=== PATIENT | male | born 1950 | race Two or more races ===

== ENCOUNTER 2017-11-10 07:15 | Inpatient (IN) | END 2017-11-11 14:36 | disposition home health service (06) | DRG 470 | DX: M17.12 Unilateral primary osteoarthritis, left knee (principal); K21.9 Gastro-esophageal reflux disease without esophagitis; M21.069 Valgus deformity, not elsewhere classified, unspecified knee ==

== ENCOUNTER 2017-11-15 13:33 | Emergency (ER) | payer MEDICARE, OTHER ==
[~2017-11-15] VITALS: Ht 172.7 cm; Wt 74.0 kg
[~2017-11-15 13:33] MED LIST: ECASA81 PO; HYDR-3580 PO; MAPA500T13 PO; PANT40TA3 PO
[2017-11-15 13:43] VITALS: BP 147/59; PULSE 100; RESP 20; TEMP 98; O2SAT 97
[2017-11-15 14:17] VITALS: BP 137/76; PULSE 86; RESP 18; O2SAT 97
[2017-11-15 14:24] LABS: AUTOMATED NEUTROPHIL # 5.4 TH/MM3 (1.8-7.7); BASOPHIL % 0.2 % (0.0-2.0); EOSINOPHIL # 0.1 TH/MM3 (0-0.4); EOSINOPHIL % 1.6 % (0.0-4.0); HEMATOCRIT 31.6 % (39.0-51.0); HEMOGLOBIN 10.4 GM/DL (13.0-17.0); LYMPH % 12.6 % (9.0-44.0); LYMPHOCYTE # 0.9 TH/MM3 (1.0-4.8); MEAN CELL VOLUME 85.8 FL (80.0-100.0); MEAN CORPUSCULAR HEMOGLOBIN 28.3 PG (27.0-34.0); MONO % 9.9 % (0.0-8.0); MONOCYTE # 0.7 TH/MM3 (0-0.9); NEUT % 75.7 % (16.0-70.0); PLATELET COUNT 240 TH/MM3 (150-450); RED BLOOD COUNT 3.68 MIL/MM3 (4.50-5.90); RED CELL DISTRIBUTION WIDTH 14.4 % (11.6-17.2); WHITE BLOOD COUNT 7.2 TH/MM3 (4.0-11.0)
--- NOTE | 2017-11-15 14:45 | RADRPT ---
EXAM DATE: 11/15/2017 2:35 PM EDT AGE/SEX: 67 years / Male INDICATIONS: Left posterior knee pain, swelling, drainage from sutures. Total knee replacement 5 day s ago. Denies injury CLINICAL DATA: This is the patient's sequela encounter. Patient reports that signs and symptoms have been present for 4 - 6 days and indicates a pain score of 3/10. MEDICAL/SURGICAL HISTORY: Arthritis. Total knee replacement, left. COMPARISON: Knee x-ray 11/10/2017. FINDINGS: There is a total knee prosthesis in good position. An enlarging joint effusion and worsening soft tis francisco swelling relative to the prior exam. No cortical destruction. No radiopaque foreign body. CONCLUSION: Worsening joint effusion and soft tissue swelling relative to the prior study. Electronically signed by: Nikhil Hebert MD 11/15/2017 2:44 PM EDT
[2017-11-15 15:03] LABS: BICARBONATE 25.9 MEQ/L (21.0-32.0); C-REACTIVE PROTEIN 17.3 MG/DL (0.00-0.30); CALCIUM 8.3 MG/DL (8.5-10.1); CREATININE 1.26 MG/DL (0.60-1.30); MAGNESIUM 2.3 MG/DL (1.5-2.5)
--- NOTE | 2017-11-15 15:35 | PD ---
HPI Chief Complaint: Wound/Suture/Staple Re-Check Time Seen by Provider: 13:54 Travel History International Travel<30 days: No Contact w/Intl Traveler<30days: No Traveled to known affect area: No History of Present Illness HPI 67-year-old male that presents to the ED for violation of swelling and rash to the left knee. Patient had a knee replacement on Thursday by Dr. Conklin. Patient has been doing well since discharge except that today they have noted the patient has blisters on his skin. Blisters appear to follow the pattern of the tape that was put on the need to keep the skin together. Mainly on the borders. None noted on the surgical scar itself. The patient is not painful or itchy. They noted some swelling and some bleeding from 1 of the surgical wounds but this has since stopped with dressing and packing. Patient denies any chest pain or shortness of breath. No fevers chills or sweats. Patient apparently contacted the wound nurse who told him to come here to get checked out. Patient denies any other medical issues. Has no allergies to medication. Per patient the pain is minimal. No other medical issues at this time. PFSH Past Medical History Anxiety: No Depression: No Cancer: No Cardiovascular Problems: No Diabetes: No Endocrine: No Gastrointestinal Disorders: Yes GERD: Yes Genitourinary: No Hepatitis: No Hiatal Hernia: No Hypertension: No Immune Disorder: No Implanted Vascular Access Dvce: Yes Medical other: No Musculoskeletal: Yes (arthritis) Neurologic: No Psychiatric: No Reproductive: No Respiratory: No Thyroid Disease: No Past Surgical History Abdominal Surgery: No AICD: No Cardiac Surgery: No Ear Surgery: No Endocrine Surgery: No Eye Surgery: No Genitourinary Surgery: No Gynecologic Surgery: No Joint Replacement: Yes (right hip, total knee) Neurologic Surgery: No Oral Surgery: No Pacemaker: No Thoracic Surgery: No Other Surgery: Yes Social History Alcohol Use: No Tobacco Use: No Substance Use: No Allergies-Medications (Allergen,Severity, Reaction): Coded Allergies: No Known Allergies (Verified Allergy, Mild, 10/22/03) Reported Meds & Prescriptions Reported Meds & Active Scripts Active Hydrocodone-Acetamin 7.5-325 (Hydrocodone/Acetaminophen) 7.5 Mg-325 Mg Tablet 1 Tab PO Q4H PRN Aspirin DR (Aspirin) 81 Mg Tabdr 81 Mg PO BID 30 Days Reported Pantoprazole (Pantoprazole Sodium) 40 Mg Tab 40 Mg PO DAILY PRN Mapap Extra Strength (Acetaminophen) 500 Mg Tab 500 Mg PO Q4-6H PRN Review of Systems Except as stated in HPI: all other systems reviewed are Neg Physical Exam Narrative GENERAL: SKIN: Warm and dry. HEAD: Atraumatic. Normocephalic. EYES: Pupils equal and round. No scleral icterus. No injection or drainage. ENT: No nasal bleeding or discharge. Mucous membranes pink and moist. Tongue is midline. No uvula deviation. NECK: Trachea midline. No JVD. CARDIOVASCULAR: Regular rate and rhythm. No murmurs, S3, S4. RESPIRATORY: No accessory muscle use. Clear to auscultation. Breath sounds equal bilaterally. GASTROINTESTINAL: Abdomen soft, non-tender, nondistended. Hepatic and splenic margins not palpable. MUSCULOSKELETAL: Extremities without clubbing, cyanosis, or edema. No obvious deformities. Full range of motion of the upper and lower extremities bilaterally with exception of the left knee which patient cannot completely flex. Some discomfort. Patient does have many postsurgical changes to his left leg compared to the right. Deafly some bruising noted patient the medial aspect. No pain in this area. Patient does have some swelling noted on the knee joint itself. Surgical scar itself appears to be intact. Patient does have some sutures as well as surgical tape on top of it and there appears to be blisters and red-like rash that appeared to be more heavy looking around the borders of this surgical tape. Knee itself is a little bit warm but not hot to touch. 2+ pulses bilaterally. Sensation is intact bilaterally. NEUROLOGICAL: Awake and alert. No obvious cranial nerve deficits. Motor grossly within normal limits. Five out of 5 muscle strength in the arms and legs. Normal speech. PSYCHIATRIC: Appropriate mood and affect; insight and judgment normal. Data Data Last Documented VS Vital Signs Date Time Temp Pulse Resp B/P (MAP) Pulse Ox O2 Delivery O2 Flow Rate FiO2 11/15/17 14:17 86 18 137/76 (96) 97 11/15/17 13:43 98.0 Orders Orders Complete Blood Count With Diff (11/15/17 14:02) Basic Metabolic Panel (Bmp) (11/15/17 14:02) C-Reactive Protein (Crp) (11/15/17 14:02) Westergren Sedimentation Rate (11/15/17 14:02) Magnesium (Mg) (11/15/17 14:02) Knee, Complete (4vws) (11/15/17 ) Ed Discharge Order (11/15/17 15:26) Labs Laboratory Tests Test 11/15/17 14:06 White Blood Count 7.2 TH/MM3 Red Blood Count 3.68 MIL/MM3 Hemoglobin 10.4 GM/DL Hematocrit 31.6 % Mean Corpuscular Volume 85.8 FL Mean Corpuscular Hemoglobin 28.3 PG Mean Corpuscular Hemoglobin Concent 33.0 % Red Cell Distribution Width 14.4 % Platelet Count 240 TH/MM3 Mean Platelet Volume 8.0 FL Neutrophils (%) (Auto) 75.7 % Lymphocytes (%) (Auto) 12.6 % Monocytes (%) (Auto) 9.9 % Eosinophils (%) (Auto) 1.6 % Basophils (%) (Auto) 0.2 % Neutrophils # (Auto) 5.4 TH/MM3 Lymphocytes # (Auto) 0.9 TH/MM3 Monocytes # (Auto) 0.7 TH/MM3 Eosinophils # (Auto) 0.1 TH/MM3 Basophils # (Auto) 0.0 TH/MM3 CBC Comment DIFF FINAL Differential Comment Erythrocyte Sedimentation Rate 68 mm/hr Blood Urea Nitrogen 23 MG/DL Creatinine 1.26 MG/DL Random Glucose 109 MG/DL Calcium Level 8.3 MG/DL Magnesium Level 2.3 MG/DL Sodium Level 136 MEQ/L Potassium Level 4.3 MEQ/L Chloride Level 102 MEQ/L Carbon Dioxide Level 25.9 MEQ/L Anion Gap 8 MEQ/L Estimat Glomerular Filtration Rate 57 ML/MIN C-Reactive Protein 17.30 MG/DL [facility] Medical Decision Making Medical Screen Exam Complete: Yes Emergency Medical Condition: Yes Medical Record Reviewed: Yes Interpretation(s) CBC & BMP Diagram 11/15/17 14:06 Calcium Level 8.3 L, Magnesium Level 2.3 Last Impressions Knee X-Ray 11/15/17 0000 Signed Impressions: CONCLUSION: Worsening joint effusion and soft tissue swelling relative to the prior stud y. CRP elevated ESR elevated Differential Diagnosis Allergic rash versus allergic dermatitis versus cellulitis versus wound infection versus wound swelling Narrative Course 67-year-old male that presents to the ED for evaluation of rash to the surgical left knee. Patient was properly examined and was found to have signs and symptoms of unclear etiology. Labs and imaging order. Labs and imaging show elevated CRP as well as elevated ESR and increase of swelling per x-ray report. Case was discussed with my attending Dr Price who evaluated the patient himself. He does believe that this is likely allergic reaction. He did try to remove part of the surgical tape but unfortunately some of the skin to his then he decided to left the tape in place. Patient has an appointment with his surgeon on Thursday. Patient was told that he needs to follow with the surgeon on Thursday. At this time there is no signs of infection as patient does not have a white blood cell count elevation. Attending recommends no antibiotics at this time. Told to follow-up with PCP. See ED worsening symptoms. Wound care recommended. Diagnosis Primary Impression: Allergic reaction Qualified Codes: T78.40XA - Allergy, unspecified, initial encounter Additional Impression: Post-operative complication Qualified Codes: L76.82 - Other postprocedural complications of skin and subcutaneous tissue Patient Instructions: General Instructions Additional Instructions: Keep an eye on rash. Follow up with Dr Conklin. If redness worsens, fevers of 100.4 come back to ED immediately. You might take benadryl 25 mg q6 hrs to help with rash. Med/Other Pt SpecificInfo: No Change to Meds Disposition: 01 DISCHARGE HOME Condition: Stable [place] November 15, 2017 15:35
== END 2017-11-15 15:57 | disposition home or self-care (01) ==
LOC: NEPE 13:33
DX: T78.40XA Allergy, unspecified, initial encounter (principal); R79.82 Elevated C-reactive protein (CRP); K21.9 Gastro-esophageal reflux disease without esophagitis; Z79.899 Other long term (current) drug therapy; Z96.652 Presence of left artificial knee joint
CPT/HCPCS: 73564; 80048; 83735; 85025; 85652; 86140; 99284